=== PATIENT | female | born 2005 | race Two or more races ===

== ENCOUNTER 2025-09-05 19:10 | Emergency (ER) | payer OTHER ==
[~2025-09-05] VITALS: Ht 182.9 cm; Wt 70.3 kg
[2025-09-05 19:32] VITALS: BP 113/72
[2025-09-05 20:41] VITALS: BP 113/72; O2SAT 98
== END 2025-09-05 20:41 | disposition home or self-care (01) ==
LOC: ER 19:25
DX: S93.402A Sprain of unspecified ligament of left ankle, initial encounter (principal); X50.1XXA Overexertion from prolonged static or awkward postures, initial encounter; Y93.89 Activity, other specified; Y92.89 Other specified places as the place of occurrence of the external cause; Y99.9 Unspecified external cause status
CPT/HCPCS: 73610; A4606; A4663